=== PATIENT | male | born 1995 | race Caucasian/White ===

== ENCOUNTER 2022-10-24 21:38 | Emergency (ER) | payer MEDICAID ==
[~2022-10-24] VITALS: Ht 172.7 cm; Wt 100.0 kg
[2022-10-24 21:43] VITALS: O2SAT 98
[2022-10-24] MEDS ORDERED: KETOROLAC 60MG/2ML VIAL IM ONE (22:15)
[2022-10-24] MEDS ORDERED: NAPR-1176 MT (23:23)
[2022-10-25 01:10] VITALS: BP 129/78; PULSE 85; RESP 17; TEMP 98.4
== END 2022-10-25 00:10 | disposition home or self-care (01) ==
LOC: ER 21:38
DX: Z00.00 Encounter for general adult medical examination without abnormal findings (principal)
CPT/HCPCS: 73030; 70450; 96372; 99285; J1885; Z7610; A4565